=== PATIENT | male | born 1985 | race Caucasian/White ===

== ENCOUNTER 2018-02-28 20:55 | Emergency (ER) | payer SELFPAY ==
[~2018-02-28] VITALS: Ht 188 cm; Wt 96.7 kg
--- NOTE | 2018-02-28 21:01 | ED.ADGEN ---
Past History Past Medical History: Migraines Adult General Chief Complaint Chief Complaint ".. I having a migraine headache... I do have the occasional.. ".. If go to sleep they will usually go away..." HPI HPI Patient is a 32 year old male who presents with above hx and complaints of Migraine headache. Pt. states he has had migraine for years.. Pt. has complaint of photophobia, nausea. and generalized malaise. Pt. states he has tingle in both hands, more in Lt. Pt. denies immunosuppression, ill contacts, travel or trauma. Pt. denies any drug use. Pt. normally follows with Dr. Pfeiffer. Review of Systems Review of Systems Constitutional: Denies fever or chills [] Eyes: Denies change in visual acuity, redness, or eye pain []Complaints of photophobia. HENT: Denies nasal congestion or sore throat [] Respiratory: Denies cough or shortness of breath [] Cardiovascular: No additional information not addressed in HPI [] GI: Denies abdominal pain,, vomiting, bloody stools or diarrhea []Complaints of nausea. : Denies dysuria or hematuria [] Musculoskeletal: Denies back pain or joint pain [] Integument: Denies rash or skin lesions [] Neurologic: Denies headache, focal weakness or sensory changes [] Endocrine: Denies polyuria or polydipsia [] All other systems were reviewed and found to be within normal limits, except as documented in this note. Family History Family History Non=-contributory Current Medications Current Medications Current Medications Medications (Trade) Dose Ordered Sig/Sandra Start Time Stop Time Status Last Admin Dose Admin Dexamethasone Sodium Phosphate (Decadron) 10 mg 1X ONCE 02/28/18 22:15 02/28/18 22:16 DC 02/28/18 22:17 10 MG Diphenhydramine HCl (Benadryl) 50 mg 1X ONCE 02/28/18 21:45 02/28/18 21:46 DC 02/28/18 22:16 50 MG Haloperidol Lactate (Haldol) 2.5 mg 1X ONCE 02/28/18 21:45 02/28/18 21:46 DC 02/28/18 22:19 2.5 MG Ketorolac Tromethamine (Toradol) 30 mg 1X ONCE 02/28/18 22:15 02/28/18 22:16 DC 02/28/18 22:18 30 MG Ondansetron HCl (Zofran Odt) 8 mg 1X ONCE 02/28/18 22:30 02/28/18 22:31 DC 02/28/18 22:24 8 MG Sodium Chloride 50 ml @ As Directed STK-MED ONCE 02/28/18 22:08 02/28/18 22:09 DC Valproic Acid (Depacon) 500 mg STK-MED ONCE 02/28/18 22:09 02/28/18 22:10 DC Valproic Acid 500 mg/Sodium Chloride 55 ml @ 55 mls/hr 1X STAT 02/28/18 21:13 02/28/18 22:12 DC 02/28/18 22:25 55 MLS/HR Allergies Allergies Allergies Coded Allergies Type Severity Reaction Last Updated Verified No Known Drug Allergies 02/28/18 No Physical Exam Physical Exam Constitutional: Well developed, well nourished, no acute distress, non-toxic appearance. [] HENT: Normocephalic, atraumatic, bilateral external ears normal, oropharynx moist, no oral exudates, nose normal. [] Eyes: PERRLA, EOMI, conjunctiva normal, no discharge. [] Neck: Normal range of motion, no tenderness, supple, no stridor. [] Cardiovascular:Heart rate regular rhythm, no murmur [] Lungs & Thorax: Bilateral breath sounds equal at apexes with scattered wheezes on auscultation [] Abdomen: Bowel sounds normal, soft, no tenderness, no masses, no pulsatile masses. [] Skin: Warm, dry, no erythema, no rash. [] Back: No tenderness, no CVA tenderness. [] Extremities: No tenderness, no cyanosis, no clubbing, ROM intact, no edema. [] Neurologic: Alert and oriented X 3, normal motor function, normal sensory function, no focal deficits noted. []DTR+ 2. No drift. Ambulatory without problems. Dose complaints of numbness or tingle in both hands, more in lt.. Rt. hand dominate. Psychologic: Affect normal, judgement normal, mood normal. [] Current Patient Data Vital Signs Vital Signs Date Time Temp Pulse Resp B/P (MAP) Pulse Ox O2 Delivery O2 Flow Rate FiO2 02/28/18 22:37 66 17 135/95 (108) 96 Room Air 5/7/18 20:55 97.6 Lab Results Laboratory Tests Test 02/28/18 21:34 02/28/18 21:43 02/28/18 21:48 White Blood Count 11.1 x10^3/uL (4.0-11.0) H Red Blood Count 5.23 x10^6/uL (4.30-5.70) Hemoglobin 16.2 g/dL (13.0-17.5) Hematocrit 46.1 % (39.0-53.0) Mean Corpuscular Volume 88 fL (79-100) Mean Corpuscular Hemoglobin 31 pg (25-35) Mean Corpuscular Hemoglobin Concent 35 g/dL (31-37) Red Cell Distribution Width 12.5 % (11.5-14.5) Platelet Count 295 x10^3/uL (140-400) Neutrophils (%) (Auto) 70 % (31-73) Lymphocytes (%) (Auto) 20 % (24-48) L Monocytes (%) (Auto) 8 % (0-9) Eosinophils (%) (Auto) 2 % (0-3) Basophils (%) (Auto) 1 % (0-3) Neutrophils # (Auto) 7.7 x10^3uL (1.8-7.7) Lymphocytes # (Auto) 2.2 x10^3/uL (1.0-4.8) Monocytes # (Auto) 0.8 x10^3/uL (0.0-1.1) Eosinophils # (Auto) 0.2 x10^3/uL (0.0-0.7) Basophils # (Auto) 0.1 x10^3/uL (0.0-0.2) Erythrocyte Sedimentation Rate 2 (0-15) Prothrombin Time 10.9 SEC (9.4-11.4) Prothrombin Time INR 1.1 (0.9-1.1) PTT 27 SEC (23-33) Urine Collection Type Unknown Urine Color Yellow Urine Clarity Clear Urine pH 7.0 Urine Specific O'Brien 1.015 Urine Protein Neg (NEG-TRACE) Urine Glucose (UA) Neg mg/dL (NEG) Urine Ketones (Stick) Neg mg/dL (NEG) Urine Blood Neg (NEG) Urine Nitrite Neg (NEG) Urine Bilirubin Neg (NEG) Urine Urobilinogen Dipstick 0.2 mg/dL (0.2 mg/dL) Urine Leukocyte Esterase Neg (NEG) Urine RBC 0 /HPF (0-2) Urine WBC 1-4 /HPF (0-4) Urine Squamous Epithelial Cells Few /LPF Urine Bacteria Few /HPF (0-FEW) Urine Opiates Screen Neg (NEG) Urine Methadone Screen Neg (NEG) Urine Barbiturates Neg (NEG) Urine Phencyclidine Screen Neg (NEG) Urine Amphetamine/Methamphetamine Neg (NEG) Urine Benzodiazepines Screen Neg (NEG) Urine Cocaine Screen Neg (NEG) Urine Cannabinoids Screen Pos (NEG) Urine Ethyl Alcohol (NEG) POC Hemoglobin 16.3 gm/dL POC Hematocrit 48 % POC Sodium 139 mmol/L (135-145) POC Potassium 3.8 mmol/L (3.5-5.0) POC Chloride 101 mmol/L (98-110) POC Total CO2 24 mmol/L (23-32) Anion Gap 19 mmol/L (6-14) H POC Blood Urea Nitrogen 17 mg/dL (8-26) POC Creatinine 0.8 mg/dL (0.5-1.4) Glucose Level 134 mg/dL (60-99) H POC Ionized Calcium (Agustín) 1.14 mmol/L (1.13-1.32) POC Troponin I 0.00 ng/ml (<0.08) EKG EKG My interpretation of EKG shows as sinus rate 81, non-specific anterolateral changes. No findings of STEMI with contralateral changes. [] Radiology/Procedures Radiology/Procedures My interpretation CT of head shows no shift, mass, edema, bleed, or fracture. See formal report when available Course & Med Decision Making Course & Med Decision Making Pertinent Labs and Imaging studies reviewed. (See chart for details) Patient demanding discharge at approximately 2345 hrs. States his headache is completely gone. Patient does declines spinal tap -patient exhibits [employer] capacity. Pt. given a trial of Imitrex 100 mg beginning headache. Patient take no more than 200 mg in24. Follow-up primary care. Follow-up with neurology. Return if any concerns. [] Final Impression Final Impression 1. Migraine -migraine variant 2. Leukocytosis 3. Marijuana and Tobacco Use Problems: Dragon Disclaimer Dragon Disclaimer This electronic medical record was generated, in whole or in part, using a voice recognition dictation system. JAYY RANDLE MD February 28, 2018 21:01
[2018-02-28] MEDS ORDERED: VALPROATE SODIUM 500 MG in IV NORMAL SALINE 50ML 50 ML IV STA (21:13)
[2018-02-28] MEDS ORDERED: HALOPERIDOL LACT 5 MG/ML VIAL. IVP ONE (21:45)
[2018-02-28] MEDS ORDERED: diphenhydrAMINE 50 MG/ML VIAL IV ONE (21:45)
--- NOTE | 2018-02-28 21:57 | RAD ---
CT HEAD WO CONTRAST History: 237758.001 Migraine headache, sensitivity to light Comparison: None. Technique: Noncontrast CT imaging was performed of the head. Exposure: One or more of the following individualized dose reduction techniques were utilized for this examination: 1. Automated exposure control 2. Adjustment of the mA and/or kV according to patient size 3. Use of iterative reconstruction technique. Findings: There is some motion. No convincing acute extra-axial or parenchymal hemorrhage is identified. There is no significant intra-axial mass effect, midline shift, or extra-axial fluid collection. The bergeron-white differentiation of the major vascular territories is preserved. The ventricles, sulci, and cisterns are within normal limits in size and configuration. The mastoid air cells and the visualized paranasal sinuses are aerated. No acute calvarial abnormality is identified. Impression: 1. Exam is degraded by some motion, no convincing acute intracranial abnormality identified. Electronically signed by: Kieran Jerez MD (02/28/2018 9:54 PM) [facility]
[2018-02-28 22:08] LABS: HEMOGLOBIN ISTAT 16.3 gm/dL; POTASSIUM ISTAT 3.8 mmol/L (3.5-5.0)
[2018-02-28] MEDS ORDERED: IV NORMAL SALINE 50ML 50 ML ONE (22:08)
[2018-02-28] MEDS ORDERED: VALPROATE SODIUM 500 MG/5 ML VIAL IV ONE (22:09)
[2018-02-28] MEDS ORDERED: KETOROLAC 30 MG/ML VIAL. IV ONE (22:15)
[2018-02-28] MEDS ORDERED: DEXAMETHASONE SOD PHOS 10 MG/ML VIAL IV ONE (22:15)
[2018-02-28 22:18] LABS: BASO # 0.1 x10^3/uL (0.0-0.2); BASO % 1 % (0-3); EOS # 0.2 x10^3/uL (0.0-0.7); EOS % 2 % (0-3); HEMATOCRIT 46.1 % (39.0-53.0); HEMOGLOBIN 16.2 g/dL (13.0-17.5); LYMPH # 2.2 x10^3/uL (1.0-4.8); LYMPH % 20 % (24-48); MEAN CORPUSCULAR HEMOGLOBIN 31 pg (25-35); MEAN CORPUSCULAR HGB CONC 35 g/dL (31-37); MEAN CORPUSCULAR VOLUME 88 fL (79-100); MONO # 0.8 x10^3/uL (0.0-1.1); MONO % 8 % (0-9); NEUT # 7.7 x10^3uL (1.8-7.7); NEUT % 70 % (31-73); PLATELET COUNT 295 x10^3/uL (140-400); RED BLOOD COUNT 5.23 x10^6/uL (4.30-5.70); RED CELL DISTRIBUTION WIDTH 12.5 % (11.5-14.5); WHITE BLOOD COUNT 11.1 x10^3/uL (4.0-11.0)
[2018-02-28] MEDS ORDERED: ONDANSETRON ODT 4 MG TAB.RAPDIS ONE (22:19)
[2018-02-28] MEDS ORDERED: ONDANSETRON ODT 4 MG TAB.RAPDIS PO ONE (22:30)
[2018-02-28 22:37] LABS: BACTERIA,URINE FEW /HPF (0-FEW); BILIRUBIN,URINE NEG (NEG); CLARITY,URINE CLEAR; COLOR,URINE YELLOW; GLUCOSE,URINE NEG (NEG); NITRITE,URINE NEG (NEG); RBC,URINE 0 /HPF (0-2); SQUAMOUS EPITHELIAL CELL,UR FEW /LPF; UROBILINOGEN,URINE 0.2 mg/dL (0.2 mg/dL)
[2018-02-28 23:37] VITALS: BP 137/81
[2018-02-28] MEDS ORDERED: SUMA100T3 PO (23:42)
[2018-02-28 23:44] LABS: AMPHETAMINE/METHAMPHETAMINE NEG (NEG); BARBITURATES NEG (NEG); BENZODIAZEPINES NEG (NEG); CANNABINOIDS POS (NEG); COCAINE NEG (NEG); METHADONE NEG (NEG); OPIATES NEG (NEG); PHENCYCLIDINE NEG (NEG)
[2018-03-01 00:19] LABS: SEDIMENTATION RATE 2 (0-15)
--- NOTE | 2018-03-01 09:37 | RAD ---
EXAM: Chest, 2 views. HISTORY: Headache. COMPARISON: None. FINDINGS: Frontal and lateral views of the chest are obtained. There is no infiltrate, effusion or pneumothorax. The heart is normal in size. IMPRESSION: No acute pulmonary finding. Electronically signed by: Patricia Wallis MD (03/01/2018 9:34 AM) [id number]
== END 2018-02-28 23:57 | disposition home or self-care (01) ==
LOC: ER 20:55
DX: G43.809 Other migraine, not intractable, without status migrainosus (principal); D72.829 Elevated white blood cell count, unspecified; F12.10 Cannabis abuse, uncomplicated; Z72.0 Tobacco use
CPT/HCPCS: 36415; 70450; 71046; 80047; 80307; 81001; 84484; 85025; 85610; 85651; 85730; 93005; 96365; 96375; 99285; J1100; J1200; J1630; J1885; J3490; Q0162; G0479